=== PATIENT | female | born 2000 | race Caucasian/White ===

== ENCOUNTER 2020-03-11 18:23 | Emergency (ER) | payer OTHER ==
[2020-03-11 18:46] LABS: BILIRUBIN,URINE NEGATIVE (NEGATIVE); GLUCOSE, URINE (UA) NEGATIVE (NEGATIVE); KETONES,URINE (UA) 15 mg/dL (NEGATIVE); LEUKOCYTE ESTERASE, URINE SMALL (NEGATIVE); NITRITE,URINE NEGATIVE (NEGATIVE); OCCULT BLOOD,URINE LARGE (NEGATIVE); PROTEIN,URINE 100 mg/dL (NEGATIVE); UROBILINOGEN,URINE 0.2 (NORMAL) E.U./dL (NORMAL)
[2020-03-11 18:47] LABS: CLARITY,URINE HAZY (CLEAR)
[2020-03-11 18:48] LABS: HCG UR QUAL NEGATIVE
[2020-03-11] MEDS ORDERED: NITROFURANTOIN MACRO 100 MG CAPSULE PO STA (19:06)
[2020-03-11] MEDS ORDERED: PHENAZOPYRIDINE 100 MG TABLET PO STA (19:06)
[2020-03-11 19:07] LABS: BACTERIA,URINE Few /HPF (None Seen); SQUAMOUS EPITHELIAL CELL,UR FEW Squamous (<= Few)
--- NOTE | 2020-03-11 19:08 | ED Physician Documentation ---
PD HPI FEMALE - Stated complaint Stated Complaint: FEMALE - Chief complaint Chief Complaint: UTI - History obtained from History obtained from: Patient - History of Present Illness Timing - onset: How many days ago (6) Timing - duration: Days (6) Timing - details: Gradual onset Pain level max: 4 Pain level max: 3 Associated symptoms: Dysuria, Urinary frequency. No: Fever, Pelvic pain, Vaginal pain, Vaginal bleeding, Vaginal discharge, Genital sore/lesion, Hematuria Contributing factors: No: Exposed to STD Recently seen: Not recently seen Review of Systems Constitutional: denies: Fever Respiratory: denies: Cough GI: denies: Vomiting, Diarrhea : denies: Now EGA Skin: denies: Rash PD PAST MEDICAL HISTORY - Past Medical History Past Medical History: No Cardiovascular: None Respiratory: None Neuro: None Endocrine/Autoimmune: None GI: None NEONATAL DOCTOR: None : None HEENT: None Psych: None Musculoskeletal: None Derm: None - Past Surgical History Past Surgical History: No - Present Medications Home Medications: Ambulatory Orders Medication Instructions Recorded Confirmed Nitrofurantoin Monohyd/M-Cryst 100 mg PO BID #10 capsule 03/11/20 [Macrobid 100 mg Capsule] Phenazopyridine HCl [Pyridium] 200 mg PO TID PRN #6 tablet 03/11/20 - Allergies Allergies/Adverse Reactions: Allergies Allergy/AdvReac Type Severity Reaction Status Date / Time No Known Drug Allergies Allergy Verified 03/11/20 18:33 - Social History Does the pt smoke?: No Smoking Status: Never smoker Does the pt drink ETOH?: No Does the pt have substance abuse?: No - Immunizations Immunizations are current?: Yes - POLST Patient has POLST: No PD ED PE NORMAL - Vitals Vital signs reviewed: Yes - General General: Alert and oriented X 3, No acute distress - HEENT HEENT: Moist mucous membranes - Neck Neck: Supple, no meningeal sign - Cardiac Cardiac: RRR - Respiratory Respiratory: No respiratory distress, Clear bilaterally - Abdomen Abdomen: Soft, Non tender, Non distended - Back Back: No CVA TTP - Derm Derm: Warm and dry - Neuro Neuro: Alert and oriented X 3 - Psych Psych: Normal mood, Normal affect Results - Vitals Vitals: Vital Signs - 24 hr 03/11/20 03/11/20 18:33 19:18 Temperature 36.5 C 36.5 C Heart Rate 100 89 Respiratory 19 18 Rate Blood Pressure 141/90 H 132/80 H O2 Saturation 100 100 Oxygen O2 Source Room air - Labs Labs: Laboratory Tests 03/11/20 18:35 Urine Color YELLOW Urine Clarity HAZY Urine pH 7.0 Ur Specific [place] 1.020 Urine Protein 100 H Urine Glucose (UA) NEGATIVE Urine Ketones 15 H Urine Occult Blood LARGE H Urine Nitrite NEGATIVE Urine Bilirubin NEGATIVE Urine Urobilinogen 0.2 (NORMAL) Ur Leukocyte Esterase SMALL H Urine RBC 11-25 H Urine WBC 6-10 H Ur Squamous Epith Cells FEW Squamous Urine Bacteria Few Ur Microscopic Review INDICATED Urine Culture Comments INDICATED Urine HCG, Qual NEGATIVE PD MEDICAL DECISION MAKING - ED course Complexity details: reviewed results, considered differential, d/w patient ED course: Patient with a UTI. No changes in sexual partners. No STD exposure. No vaginal bleeding or discharge. We will place her on antibiotics and have her follow-up with her doctor as needed. Patient counseled regarding signs and symptoms for which I believe and urgent re-evaluation would be necessary. Patient with good understanding of and agreement to plan and is comfortable going home at this time This document was made in part using voice recognition software. While efforts are made to proofread this document, sound alike and grammatical errors may occur. Departure - Departure Disposition: Home, Self Care Clinical Impression: Urinary tract infection Qualifiers: Urinary tract infection type: acute cystitis Hematuria presence: without hematuria Qualified Code(s): N30.00 - Acute cystitis without hematuria Condition: Good Instructions: ED UTI Cystitis Female Follow-Up: your,doctor as needed [Other] Prescriptions: Nitrofurantoin Monohyd/M-Cryst [Macrobid 100 mg Capsule] 100 mg PO BID #10 capsule Phenazopyridine HCl [Pyridium] 200 mg PO TID PRN #6 tablet PRN Reason: dysuria Comments: Take all antibiotics until gone. Return if you worsen. Follow-up with your doctor as needed for further care. Discharge Date/Time: 03/11/20 19:18
[2020-03-11 19:19] VITALS: BP 132/80
== END 2020-03-11 19:18 | disposition home or self-care (01) ==
LOC: ED 18:23
DX: N30.00 Acute cystitis without hematuria (principal)
CPT/HCPCS: 81001; 81025; 87077; 87086; 87181; 99283; 99284; A9270; 81003

== ENCOUNTER 2020-03-28 16:35 | Outpatient (CLI) | payer OTHER | END 2020-03-28 16:36 | disposition home or self-care (01) | LOC: COV 16:35 | PROVIDERS: ATTEND Family Medicine | DX: U07.1 COVID-19 (principal) ==

== ENCOUNTER 2020-08-16 22:57 | Emergency (ER) | payer OTHER ==
--- NOTE | 2020-08-17 00:31 | ED Physician Documentation ---
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 She states that she has almost saturated a pad. She denies any specific cramping pain. She has an appointment to see her provider on August 29 for ultrasound. Review of Systems Constitutional: denies: Fever Eyes: denies: Decreased vision Ears: denies: Ear pain Nose: denies: Congestion Throat: denies: Sore throat Respiratory: denies: Cough GI: denies: Abdominal Pain, Vomiting : reports: Vaginal bleeding. denies: Dysuria, Frequency Skin: denies: Rash Musculoskeletal: denies: Neck pain, Back pain, Extremity pain PD PAST MEDICAL HISTORY - Past Medical History Past Medical History: No Cardiovascular: None Respiratory: None Neuro: None Endocrine/Autoimmune: None GI: None SALES DEVELOPMENT COORDINATOR: None : None HEENT: None Psych: None Musculoskeletal: None Derm: None - Past Surgical History Past Surgical History: No - Present Medications Home Medications: Ambulatory Orders Medication Instructions Recorded Confirmed No Known Home Medications 08/17/20 08/17/20 - Allergies Allergies/Adverse Reactions: Allergies Allergy/AdvReac Type Severity Reaction Status Date / Time No Known Drug Allergies Allergy Verified 08/16/20 23:03 - Social History Does the pt smoke?: No Smoking Status: Never smoker Does the pt drink ETOH?: No Does the pt have substance abuse?: No - Immunizations Immunizations are current?: Yes - POLST Patient has POLST: No PD ED PE NORMAL - Vitals Vital signs reviewed: Yes (tachy and hypertensive ) - General General: Alert and oriented X 3, No acute distress, Well developed/nourished - HEENT HEENT: Atraumatic, PERRL, EOMI - Cardiac Cardiac: RRR, No murmur - Respiratory Respiratory: No respiratory distress, Clear bilaterally - Abdomen Abdomen: Normal bowel sounds, Soft, Non tender, Non distended, No organomegaly - Back Back: No CVA TTP, No spinal TTP - Derm Derm: Normal color, Warm and dry, No rash - Extremities Extremities: No deformity, No edema - Neuro Neuro: Alert and oriented X 3, java scala developer 2-12 intact, No motor deficit, No sensory deficit, Normal speech Eye Opening: Spontaneous Motor: Obeys Commands Verbal: Oriented GCS Score: 15 - Psych Psych: Normal mood, Normal affect Results - Vitals Vitals: Vital Signs - 24 hr 08/16/20 08/16/20 08/17/20 23:03 23:27 00:51 Temperature 36.9 C Heart Rate 114 H 93 81 Respiratory 16 18 16 Rate Blood Pressure 147/100 H 120/81 H 113/71 O2 Saturation 100 100 100 08/17/20 02:20 Temperature Heart Rate 90 Respiratory 16 Rate Blood Pressure 133/95 H O2 Saturation 100 Oxygen O2 Source Room air - Labs Labs: Laboratory Tests 08/16/20 08/17/20 23:34 01:00 HCG, Quant [id number] Urine Color YELLOW Urine Clarity CLEAR Urine pH 6.5 Ur Specific [place] 1.010 Urine Protein NEGATIVE Urine Glucose (UA) NEGATIVE Urine Ketones NEGATIVE Urine Occult Blood LARGE H Urine Nitrite NEGATIVE Urine Bilirubin NEGATIVE Urine Urobilinogen 0.2 (NORMAL) Ur Leukocyte Esterase NEGATIVE Urine RBC 11-25 H Urine WBC 0-3 Ur Squamous Epith Cells RARE Squamous Urine Bacteria Few Ur Microscopic Review INDICATED Urine Culture Comments NOT INDICATED Procedures - Bedside sono Bedside sono by EMP: With use bedside ultrasound the pelvis is imaged there appears to be a gestational sac present in the uterus with a gestational age of approximately 7 weeks 4 days. I am not able to make out the appearance of parts. PD MEDICAL DECISION MAKING - ED course Complexity details: considered differential, d/w patient, d/w family ED course: 20-year-old female with postcoital bleeding in the first trimester has what appears to be a viable fetus in the uterus. She is reassured given a statistic of 98% chance of carrying the to term. She is given instructions for threatened miscarriage and instructed to follow-up with her OB care as planned. She is placed on pelvic rest until cleared by her OB. Departure - Departure Disposition: 01 Home, Self Care Clinical Impression: Threatened affecting intrauterine Condition: Stable Instructions: ED Miscarriage Poss Follow-Up: Your, doctor [Other] Discharge Date/Time: 08/17/20 02:29
[2020-08-17 00:57] LABS: BILIRUBIN,URINE NEGATIVE (NEGATIVE); GLUCOSE, URINE (UA) NEGATIVE (NEGATIVE); KETONES,URINE (UA) NEGATIVE (NEGATIVE); LEUKOCYTE ESTERASE, URINE NEGATIVE (NEGATIVE); NITRITE,URINE NEGATIVE (NEGATIVE); OCCULT BLOOD,URINE LARGE (NEGATIVE); PH,URINE 6.5 PH (5.0-7.5); PROTEIN,URINE NEGATIVE (NEGATIVE); UROBILINOGEN,URINE 0.2 (NORMAL) E.U./dL (NORMAL)
[2020-08-17 01:02] LABS: CLARITY,URINE CLEAR (CLEAR)
[2020-08-17 01:10] LABS: BACTERIA,URINE Few /HPF (None Seen); SQUAMOUS EPITHELIAL CELL,UR RARE Squamous (<= Few); WBC,URINE 0-3 /HPF (0-5)
[2020-08-17 02:20] VITALS: BP 133/95
--- NOTE | 2020-08-17 11:23 | Ultrasound Report ---
PROCEDURE: OB First Trimester INDICATIONS: 8wks bleeding OUTSIDE/PRIOR DATING DATA: Last menstrual period (LMP): 1621. LMP-based estimated date of delivery (BRANDYN): 03/20/2021. First dating scan (date and location): 08/17/2020. Estimated date of delivery (BRANDYN) from first dating scan: 03/27/2021. TECHNIQUE: Real-time scanning was performed of the fetus and maternal pelvic organs, with image documentation. COMPARISON: None FINDINGS: Embryo: Single live intrauterine is identified with crown-rump length measuring 1.8 cm cor responding to 8 weeks 2 days. There is a small perigestational sac hemorrhage measuring approximately 1.5 x 0.2 x 0.4 cm. There is a nonspecific focus of heterogeneous echogenicity near the lower uterin e segment appearing to be separate from the gestational sac measuring approximately 1.1 x 1.1 x 1.4 c m. Measurement variability in dating: +/- 4 weeks by LMP, +/- 7 days by mean sac diameter (use before 6 weeks gestation if crown-rump length not able to be measured), +/- 5 days by crown-rump length (6-12 weeks gestation). Maternal organs: Ovaries demonstrate a left corpus luteal cyst. IMPRESSION: 1. Single live intrauterine with gestational age of 8 weeks 2 days. 2. Small subchorionic hematoma. 2. Focus of heterogeneous echogenicity near the lower uterine segment appearing to be separate from t he gestational sac. This could represent hematoma. Short interval imaging follow-up of this region is recommended. Reviewed by: Shirley Cummings MD on 08/17/2020 11:21 AM PDT Approved by: Shirley Cummings MD on 08/17/2020 11:21 AM PDT Station ID: [id number]
--- NOTE | 2020-08-17 11:23 | Ultrasound Report ---
PROCEDURE: OB Transvaginal INDICATIONS: 8wks bleeding OUTSIDE/PRIOR DATING DATA: Last menstrual period (LMP): 1621. LMP-based estimated date of delivery (BRANDYN): 03/20/2021. First dating scan (date and location): 08/17/2020. Estimated date of delivery (BRANDYN) from first dating scan: 03/27/2021. TECHNIQUE: Real-time scanning was performed of the fetus and maternal pelvic organs, with image documentation. COMPARISON: None FINDINGS: Embryo: Single live intrauterine is identified with crown-rump length measuring 1.8 cm cor responding to 8 weeks 2 days. There is a small perigestational sac hemorrhage measuring approximately 1.5 x 0.2 x 0.4 cm. There is a nonspecific focus of heterogeneous echogenicity near the lower uterin e segment appearing to be separate from the gestational sac measuring approximately 1.1 x 1.1 x 1.4 c m. Measurement variability in dating: +/- 4 weeks by LMP, +/- 7 days by mean sac diameter (use before 6 weeks gestation if crown-rump length not able to be measured), +/- 5 days by crown-rump length (6-12 weeks gestation). Maternal organs: Ovaries demonstrate a left corpus luteal cyst. IMPRESSION: 1. Single live intrauterine with gestational age of 8 weeks 2 days. 2. Small subchorionic hematoma. 2. Focus of heterogeneous echogenicity near the lower uterine segment appearing to be separate from t he gestational sac. This could represent hematoma. Short interval imaging follow-up of this region is recommended. Reviewed by: Shirley Cummings MD on 08/17/2020 11:22 AM PDT Approved by: Shirley Cummings MD on 08/17/2020 11:22 AM PDT Station ID: [id number]
== END 2020-08-17 02:29 | disposition home or self-care (01) ==
LOC: ED 22:57
DX: O20.0 Threatened abortion (principal); Z3A.08 8 weeks gestation of pregnancy
CPT/HCPCS: 36415; 81001; 81003; 84702; 87086; 99284

== ENCOUNTER 2020-08-29 07:00 | Outpatient (CLI) | payer OTHER | END 2020-08-29 23:59 | disposition home or self-care (01) | LOC: COV 07:00 | PROVIDERS: ATTEND Family Medicine | DX: Z20.822 Contact with and (suspected) exposure to COVID-19 (principal) ==

== ENCOUNTER 2021-03-21 09:59 | Emergency (ER) | payer OTHER ==
--- NOTE | 2021-03-21 10:27 | ED Physician Documentation ---
PD HPI CHEST PAIN - Stated complaint Stated Complaint: CHEST PX - Chief complaint Chief Complaint: Cardiac - History obtained from History obtained from: Patient, Family - History of Present Illness Timing - onset: Today Timing - onset during: Rest Timing - duration: Hours Timing - details: Gradual onset, Still present Quality: Pressure Location: Left chest Radiation: No: Jaw, Neck, Back, Abdominal, Left upper extremity, Right upper extremity Improved by: Rest Associated symptoms: Feeling faint / dizzy. No: Shortness of air, Diaphoresis, Nausea, Vomiting, General Weakness, Palpitations, Cough Similar symptoms before: Has not had sx before Recently seen: Other (delivery) - Additional information Additional information: 20-year-old female has recently delivered her baby 8 days ago early because of preeclampsia. She was induced she has been on blood pressure medication for hypertension and despite that she has developed some pressure in her chest this morning. She states that her leg swelling has completely resolved. She is not short of breath. Review of Systems Constitutional: denies: Fever, Chills Eyes: denies: Decreased vision Ears: denies: Ear pain Nose: denies: Congestion Throat: denies: Sore throat Cardiac: reports: Chest pain / pressure. denies: Palpitations, Pedal edema, Calf pain Respiratory: denies: Dyspnea, Cough GI: denies: Vomiting PD PAST MEDICAL HISTORY - Past Medical History Cardiovascular: None Respiratory: None Neuro: None Endocrine/Autoimmune: None GI: None SHIFT LEADER: None : None HEENT: None Psych: None Musculoskeletal: None Derm: None - Past Surgical History Past Surgical History: No - Present Medications Home Medications: Ambulatory Orders Medication Instructions Recorded Confirmed NIFEdipine [Procardia] 20 mg PO TID 03/21/21 03/21/21 - Allergies Allergies/Adverse Reactions: Allergies Allergy/AdvReac Type Severity Reaction Status Date / Time No Known Drug Allergies Allergy Verified 03/21/21 10:02 - Social History Does the pt smoke?: No Smoking Status: Never smoker Does the pt drink ETOH?: No Does the pt have substance abuse?: No - Immunizations Immunizations are current?: Yes - POLST Patient has POLST: No PD ED PE NORMAL - Vitals Vital signs reviewed: Yes - General General: No acute distress, Well developed/nourished - HEENT HEENT: Atraumatic, PERRL, EOMI - Neck Neck: Supple, no meningeal sign, No bony TTP - Cardiac Cardiac: No murmur, Other (tachy to 110) - Respiratory Respiratory: No respiratory distress, Clear bilaterally - Abdomen Abdomen: Normal bowel sounds, Soft, Non tender, Non distended, No organomegaly - Back Back: No CVA TTP, No spinal TTP - Derm Derm: Normal color, Warm and dry, No rash - Extremities Extremities: No deformity, No edema - Neuro Neuro: Alert and oriented X 3, wind turbine controls engineer 2-12 intact, No motor deficit, No sensory deficit, Normal speech Eye Opening: Spontaneous Motor: Obeys Commands Verbal: Oriented GCS Score: 15 - Psych Psych: Normal mood, Normal affect Results - Vitals Vitals: Vital Signs - 24 hr 03/21/21 03/21/21 03/21/21 10:03 10:31 10:40 Temperature 36.4 C L Heart Rate 117 H 103 H 97 Respiratory 18 17 18 Rate Blood Pressure 146/94 H 141/99 H 141/99 H O2 Saturation 100 100 99 03/21/21 03/21/21 03/21/21 11:28 12:03 13:03 Temperature Heart Rate 85 84 75 Respiratory 17 19 Rate Blood Pressure 143/102 H 132/87 H 131/90 H O2 Saturation 100 99 98 Oxygen O2 Source Room air - EKG (time done) 1012 Rate: Rate (enter#) (97) Ischemia: Normal ST segments Compare to prior EKG: Old EKG unavailable Computer interpretation: Agree with computer - Labs Labs: Laboratory Tests 03/21/21 03/21/21 03/21/21 10:28 10:28 10:28 WBC 6.1 RBC 4.71 Hgb 12.6 Hct 39.2 MCV 83.2 MCH 26.8 L MCHC 32.1 RDW 15.4 H Plt Count 402 MPV 9.8 Neut # (Auto) 4.5 Lymph # (Auto) 1.0 L Mitchell # (Auto) 0.4 Eos # (Auto) 0.1 Baso # (Auto) 0.1 Absolute Nucleated RBC 0.00 Nucleated RBC % 0.0 Sodium 137 Potassium 3.9 Chloride 104 Carbon Dioxide 20 L Anion Gap 13.0 BUN 13 Creatinine 0.5 Estimated GFR (MDRD) 157 Glucose 107 H Calcium 9.4 Total Bilirubin 0.8 AST 25 ALT 23 Alkaline Phosphatase 123 H Troponin I High Sens 7.2 Total Protein 7.8 Albumin 3.6 Globulin 4.2 Albumin/Globulin Ratio 0.9 L Lipase 25 - Rads (name of study) chest Radiology: Prelim report reviewed (Impression: 1. No acute cardiopulmonary abnormality.), EMP read indepedently, See rad report Procedures - Bedside sono Bedside sono by EMP: with the use of bedside ultrasound the heart was imaged and is without evidence of pericaridal effusion. - IVC sono (time) 1037 Bedside IVC sono: IVC measures (cm) (0.91), IVC collapsed c insp (cm) (complete), Dehydration (est 1-2 liter deficit) PD MEDICAL DECISION MAKING - ED course Complexity details: reviewed old records, reviewed results, re-evaluated patient, considered differential, d/w patient ED course: 20 y/o female with hypertension has recently delivered a baby and returns here one week later with chest pain and elevated blood pressure. The patient was induced because of hypertension and pre-eclampsia. She is on some nifedapine and she is found to be dehydrated on interrogation of the IVC and she is administered IV saline with improvement in her pressure and symptoms. I considered hypertensive emergency but did not have the pressure to support this diagnosis. I considered post cardiomyopathy but the patient had no evidence of failure and did not have pericardial effusion. After hydration she was discharged to continue to care for her baby. Departure - Departure Disposition: 01 Home, Self Care Clinical Impression: Dehydration Condition: Stable Instructions: ED Dehydration Follow-Up: Eber Lechuga MD [Primary Care Provider] - Discharge Date/Time: 03/21/21 13:21
[2021-03-21 10:39] LABS: BASOPHILS # (AUTO) 0.1 10^3/uL (0.0-0.1); BASOPHILS % (AUTO) 0.8 %; EOSINOPHILS # (AUTO) 0.1 10^3/uL (0.0-0.7); HCT - HEMATOCRIT 39.2 % (37.0-47.0); HGB - HEMOGLOBIN 12.6 g/dL (12.0-16.0); LYMPHOCYTES % (AUTO) 16.7 %; MEAN CORPUSCULAR HEMOGLOBIN 26.8 pg (27.0-31.0); MEAN CORPUSCULAR HGB CONC 32.1 g/dL (32.0-36.0); MEAN CORPUSCULAR VOLUME 83.2 fL (81.0-99.0); MEAN PLATELET VOLUME 9.8 fL (7.9-10.8); MONOCYTES # (AUTO) 0.4 10^3/uL (0.0-1.0); MONOCYTES % (AUTO) 6.9 %; NEUTROPHILS # (AUTO) 4.5 10^3/uL (1.5-6.6); NEUTROPHILS % (AUTO) 74.4 %; PLT - PLATELET COUNT 402 10^3/uL (130-450); RED BLOOD COUNT 4.71 10^6/uL (4.20-5.40); RED CELL DISTRIBUTION WIDTH 15.4 % (12.0-15.0); WHITE BLOOD COUNT 6.1 x10^3/uL (4.8-10.8)
[2021-03-21] MEDS ORDERED: SODIUM CHLORIDE 0.9% 1,000 ML IV STA (10:39)
--- NOTE | 2021-03-21 10:48 | XRAY Report ---
PROCEDURE: Chest 1 View X-Ray INDICATIONS: Chest Pain TECHNIQUE: One view of the chest was acquired. COMPARISON: None. FINDINGS: SUPPORT DEVICES: None. LUNGS/PLEURA: No focal consolidation, pleural effusion or space-occupying pneumothorax. MEDIASTINUM: The cardiomediastinal silhouette is within normal limits. BONES/SOFT TISSUES: No acute abnormality. IMPRESSION: 1.No acute cardiopulmonary abnormality. Reviewed by: Garett Brambila MD on 03/21/2021 10:46 AM [facility] Approved by: Garett Brambila MD on 03/21/2021 10:46 AM [facility] Station ID: [id number]
[2021-03-21 10:58] LABS: ALBUMIN 3.6 g/dL (3.2-5.5); ALBUMIN/GLOBULIN RATIO 0.9 (1.0-2.2); BILIRUBIN,TOTAL 0.8 mg/dL (0.2-1.0); CALCIUM 9.4 mg/dL (8.5-10.3); CREATININE 0.5 mg/dL (0.4-1.0); POTASSIUM 3.9 mmol/L (3.5-5.0); TOTAL PROTEIN 7.8 g/dL (6.7-8.2)
[2021-03-21 13:04] VITALS: BP 131/90
== END 2021-03-21 13:21 | disposition home or self-care (01) ==
LOC: ED 09:59
DX: O99.285 Endocrine, nutritional and metabolic diseases complicating the puerperium (principal); E86.0 Dehydration; I10 Essential (primary) hypertension
CPT/HCPCS: 36415; 80053; 83690; 84484; 85025; 93005; 96360; 99284

== ENCOUNTER 2021-04-26 18:45 | Emergency (ER) | payer OTHER ==
[2021-04-26] MEDS ORDERED: IBUPROFEN 600 MG TABLET PO STA ×2 (19:26→21:17)
--- NOTE | 2021-04-26 19:26 | ED Physician Documentation ---
PD HPI FEMALE - Stated complaint Stated Complaint: HEADACHES,NAUSEA - Chief complaint Chief Complaint: Abd Pain - History obtained from History obtained from: Patient - Additional information Additional information: 20-year-old G1, P1 6 weeks . Unvaccinated against COVID. Body aches and chills for 2 days with headache and nausea since yesterday. Headache is gradual onset and moderate in severity. It is associated with some pelvic pain. She is half breast half bottle feeding. No sick contacts. 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 : None HEENT: None Psych: None Musculoskeletal: None Derm: None Other Past Medical History: preeclampsia during - Past Surgical History Past Surgical History: No - Present Medications Home Medications: Ambulatory Orders Medication Instructions Recorded Confirmed Escitalopram Oxalate 5 mg PO DAILY 04/26/21 04/26/21 Promethazine [Phenergan] 25 mg PO Q6H PRN #20 tab 04/26/21 - Allergies Allergies/Adverse Reactions: Allergies Allergy/AdvReac Type Severity Reaction Status Date / Time No Known Drug Allergies Allergy Verified 04/26/21 18:51 - Social History Does the pt smoke?: No Smoking Status: Never smoker Does the pt drink ETOH?: No Does the pt have substance abuse?: No - Immunizations Immunizations are current?: Yes - POLST Patient has POLST: No PD ED PE NORMAL - Vitals Vital signs reviewed: Yes - General General: Alert and oriented X 3, No acute distress - HEENT HEENT: PERRL, EOMI, Pharynx benign - Neck Neck: Supple, no meningeal sign, No bony TTP - Cardiac Cardiac: RRR, No murmur - Respiratory Respiratory: No respiratory distress, Clear bilaterally - Abdomen Abdomen: Normal bowel sounds, Soft, Non tender - Back Back: No CVA TTP, No spinal TTP - Derm Derm: Normal color, Warm and dry - Extremities Extremities: No edema, No calf tenderness / cord - Neuro Neuro: Alert and oriented X 3, Normal speech Results - Vitals Vitals: Vital Signs - 24 hr 01/04/26/21 04/26/21 18:48 19:41 19:48 Temperature 36.3 C L Heart Rate 97 93 83 Respiratory 16 Rate Blood Pressure 144/97 H 130/107 H 136/86 H O2 Saturation 100 98 100 04/26/21 04/26/21 20:19 21:25 Temperature 36.3 C L Heart Rate 79 79 Respiratory 16 Rate Blood Pressure 132/86 H 132/86 H O2 Saturation 100 100 Oxygen O2 Source Room air - Labs Labs: Laboratory Tests 04/26/21 04/26/21 04/26/21 19:09 19:09 19:09 WBC RBC Hgb Hct MCV MCH MCHC RDW Plt Count MPV Neut # (Auto) Lymph # (Auto) [place] # (Auto) Eos # (Auto) Baso # (Auto) Absolute Nucleated RBC Nucleated RBC % Sodium Potassium Chloride Carbon Dioxide Anion Gap BUN Creatinine Estimated GFR (MDRD) Glucose Calcium Magnesium Urine Color YELLOW Urine Clarity CLEAR Urine pH 6.0 Ur Specific [place] 1.025 Urine Protein NEGATIVE Urine Glucose (UA) NEGATIVE Urine Ketones 15 H Urine Occult Blood NEGATIVE Urine Nitrite NEGATIVE Urine Bilirubin NEGATIVE Urine Urobilinogen 0.2 (NORMAL) Ur Leukocyte Esterase TRACE H Urine RBC 3 Urine WBC 4-5 Ur Squamous Epith Cells MOD Squamous H Urine Bacteria Rare Ur Microscopic Review INDICATED Urine Culture Comments NOT INDICATED U Random Total Protein 8 Urine Creatinine 131.7 Urine HCG, Qual NEGATIVE Nasal Adenovirus (PCR) Nasal B. parapertussis DNA (PCR) Nasal Coronavir 229E PCR Nasal Coronavir HKU1 PCR Nasal Coronavir NL63 PCR Nasal Coronavir OC43 PCR Nasal Enterovir/Rhinovir PCR Nasal Influenza B PCR Nasal Influenza A PCR Nasal Parainfluen 1 PCR Nasal Parainfluen 2 PCR Nasal Parainfluen 3 PCR Nasal Parainfluen 4 PCR Nasal RSV (PCR) Nasal B.pertussis DNA PCR Nasal C.pneumoniae (PCR) [place] Human Metapneumo PCR Nasal M.pneumoniae (PCR) Nasal SARS-CoV-2 (PCR) 04/26/21 04/26/21 04/26/21 19:31 19:31 19:33 WBC 5.7 RBC 5.05 Hgb 13.4 Hct 41.1 MCV 81.4 MCH 26.5 L MCHC 32.6 RDW 14.7 Plt Count 259 MPV 9.5 Neut # (Auto) 3.8 Lymph # (Auto) 1.4 L [place] # (Auto) 0.5 Eos # (Auto) 0.0 Baso # (Auto) 0.0 Absolute Nucleated RBC 0.00 Nucleated RBC % 0.0 Sodium 138 Potassium 3.4 L Chloride 103 Carbon Dioxide 25 Anion Gap 10.0 BUN 8 Creatinine 0.6 Estimated GFR (MDRD) 127 Glucose 96 Calcium 9.8 Magnesium 2.0 Urine Color Urine Clarity Urine pH Ur Specific [place] Urine Protein Urine Glucose (UA) Urine Ketones Urine Occult Blood Urine Nitrite Urine Bilirubin Urine Urobilinogen Ur Leukocyte Esterase Urine RBC Urine WBC Ur Squamous Epith Cells Urine Bacteria Ur Microscopic Review Urine Culture Comments U Random Total Protein Urine Creatinine Urine HCG, Qual Nasal Adenovirus (PCR) NOT DETECTED Nasal B. parapertussis DNA (PCR) NOT DETECTED Nasal Coronavir 229E PCR NOT DETECTED Nasal Coronavir HKU1 PCR NOT DETECTED Nasal Coronavir NL63 PCR NOT DETECTED Nasal Coronavir OC43 PCR NOT DETECTED Nasal Enterovir/Rhinovir PCR NOT DETECTED Nasal Influenza B PCR NOT DETECTED Nasal Influenza A PCR NOT DETECTED Nasal Parainfluen 1 PCR NOT DETECTED Nasal Parainfluen 2 PCR NOT DETECTED Nasal Parainfluen 3 PCR NOT DETECTED Nasal Parainfluen 4 PCR NOT DETECTED Nasal RSV (PCR) NOT DETECTED Nasal B.pertussis DNA PCR NOT DETECTED Nasal C.pneumoniae (PCR) NOT DETECTED [place] Human Metapneumo PCR NOT DETECTED Nasal M.pneumoniae (PCR) NOT DETECTED Nasal SARS-CoV-2 (PCR) NOT DETECTED PD MEDICAL DECISION MAKING - ED course ED course: 20-year-old woman who is 6 weeks presents with body aches, nausea, headache, and mildly elevated blood pressures. No urine protein of significance. Covid negative. Case discussed by phone with on-call OB, Juan José Mera who agrees with plan to restart nifedipine and symptomatic treatment pending follow- up. She has the nifedipine at home. - Consults Consults: Consulted (name) (Juan José Mera) Departure - Departure Disposition: 01 Home, Self Care Clinical Impression: Nausea, Elevated blood pressure reading without diagnosis of hypertension Condition: Good Record reviewed to determine appropriate education?: Yes Instructions: ED HTN Established Prescriptions: Promethazine [Phenergan] 25 mg PO Q6H PRN #20 tab PRN Reason: Nausea / Vomiting Comments: I sent your prescription to [facility] in [place]. Follow-up with your family doctor in about a week, discuss your blood pressure and return for new or worsening symptoms. Restart her nifedipine at the previous dose. Discharge Date/Time: 04/26/21 21:38
[2021-04-26 19:36] LABS: BASOPHILS % (AUTO) 0.7 %; EOSINOPHILS % (AUTO) 0.4 %; HCT - HEMATOCRIT 41.1 % (37.0-47.0); HGB - HEMOGLOBIN 13.4 g/dL (12.0-16.0); LYMPHOCYTES # (AUTO) 1.4 10^3/uL (1.5-3.5); LYMPHOCYTES % (AUTO) 24.6 %; MEAN CORPUSCULAR HEMOGLOBIN 26.5 pg (27.0-31.0); MEAN CORPUSCULAR HGB CONC 32.6 g/dL (32.0-36.0); MEAN CORPUSCULAR VOLUME 81.4 fL (81.0-99.0); MEAN PLATELET VOLUME 9.5 fL (7.9-10.8); MONOCYTES # (AUTO) 0.5 10^3/uL (0.0-1.0); MONOCYTES % (AUTO) 8.3 %; NEUTROPHILS # (AUTO) 3.8 10^3/uL (1.5-6.6); NEUTROPHILS % (AUTO) 65.8 %; PLT - PLATELET COUNT 259 10^3/uL (130-450); RED BLOOD COUNT 5.05 10^6/uL (4.20-5.40); RED CELL DISTRIBUTION WIDTH 14.7 % (12.0-15.0); WHITE BLOOD COUNT 5.7 x10^3/uL (4.8-10.8)
[2021-04-26 19:45] LABS: BILIRUBIN,URINE NEGATIVE (NEGATIVE); GLUCOSE, URINE (UA) NEGATIVE (NEGATIVE); KETONES,URINE (UA) 15 mg/dL (NEGATIVE); LEUKOCYTE ESTERASE, URINE TRACE (NEGATIVE); NITRITE,URINE NEGATIVE (NEGATIVE); OCCULT BLOOD,URINE NEGATIVE (NEGATIVE); PROTEIN,URINE NEGATIVE (NEGATIVE); UROBILINOGEN,URINE 0.2 (NORMAL) E.U./dL (NORMAL)
[2021-04-26 19:45] LABS: CALCIUM 9.8 mg/dL (8.5-10.3); CREATININE 0.6 mg/dL (0.4-1.0); POTASSIUM 3.4 mmol/L (3.5-5.0)
[2021-04-26 19:47] LABS: CLARITY,URINE CLEAR (CLEAR); HCG UR QUAL NEGATIVE
[2021-04-26 20:02] LABS: BACTERIA,URINE Rare /HPF (None Seen); RBC,URINE 3 /HPF (0-5); SQUAMOUS EPITHELIAL CELL,UR MOD Squamous (<= Few)
[2021-04-26 20:21] VITALS: BP 132/86
[2021-04-26 20:52] LABS: B. PARAPERTUSSIS- RESP PCR PAN NOT DETECTED; B. PERTUSSIS- RESP PCR PANEL NOT DETECTED; CORONAVIRUS 229E-RESP PCR NOT DETECTED; CORONAVIRUS HKU1-RESP PCR NOT DETECTED; CORONAVIRUS NL63-RESP PCR NOT DETECTED; CORONAVIRUS OC43-RESP PCR NOT DETECTED; HUMAN METAPNEUMOVIRUS NOT DETECTED; INFLUENZA A- RESP PCR PANEL NOT DETECTED; INFLUENZA B - RESP PCR PANEL NOT DETECTED; PARAINFLUENZA VIRUS 1 NOT DETECTED; PARAINFLUENZA VIRUS 2 NOT DETECTED; PARAINFLUENZA VIRUS 3 NOT DETECTED; PARAINFLUENZA VIRUS 4 NOT DETECTED; RHINOVIRUS/ENTEROVIRUS NOT DETECTED; RSV- RESP PCR PANEL NOT DETECTED; SARS-CoV-2 -RESP PCR PANEL NOT DETECTED
[2021-04-26 20:53] LABS: C. PNEUMONIAE- RESP PCR PANEL NOT DETECTED; M. PNEUMONIAE- RESP PCR PANEL NOT DETECTED
[2021-04-26] MEDS ORDERED: PROMETHAZINE 25 MG TABLET PO STA (21:30)
== END 2021-04-26 21:38 | disposition home or self-care (01) ==
LOC: ED 18:45
DX: O90.89 Other complications of the puerperium, not elsewhere classified (principal); M79.10 Myalgia, unspecified site; R51.9 Headache, unspecified; R11.0 Nausea; R03.0 Elevated blood-pressure reading, without diagnosis of hypertension; Z20.822 Contact with and (suspected) exposure to COVID-19
CPT/HCPCS: 0202U; 36415; 80048; 81001; 81025; 82570; 83735; 84156; 85025; 99283; 99284; A9270; Q0169; 81003; 87086

== ENCOUNTER 2021-05-02 21:34 | Emergency (ER) | payer OTHER ==
[2021-05-02 22:08] LABS: BASOPHILS % (AUTO) 0.8 %; EOSINOPHILS # (AUTO) 0.1 10^3/uL (0.0-0.7); HCT - HEMATOCRIT 40.9 % (37.0-47.0); HGB - HEMOGLOBIN 13.3 g/dL (12.0-16.0); LYMPHOCYTES # (AUTO) 2.1 10^3/uL (1.5-3.5); LYMPHOCYTES % (AUTO) 40.5 %; MEAN CORPUSCULAR HEMOGLOBIN 26.5 pg (27.0-31.0); MEAN CORPUSCULAR HGB CONC 32.5 g/dL (32.0-36.0); MEAN CORPUSCULAR VOLUME 81.5 fL (81.0-99.0); MEAN PLATELET VOLUME 10.1 fL (7.9-10.8); MONOCYTES # (AUTO) 0.5 10^3/uL (0.0-1.0); MONOCYTES % (AUTO) 9.2 %; NEUTROPHILS # (AUTO) 2.5 10^3/uL (1.5-6.6); NEUTROPHILS % (AUTO) 48.3 %; PLT - PLATELET COUNT 317 10^3/uL (130-450); RED BLOOD COUNT 5.02 10^6/uL (4.20-5.40); RED CELL DISTRIBUTION WIDTH 14.6 % (12.0-15.0); WHITE BLOOD COUNT 5.2 x10^3/uL (4.8-10.8)
[2021-05-02 22:14] LABS: INR 1.2 (0.8-1.2); PT - PROTHROMBIN TIME 13.3 secs (9.9-12.6)
[2021-05-02 22:23] LABS: ALBUMIN 4.3 g/dL (3.2-5.5); ALBUMIN/GLOBULIN RATIO 1.3 (1.0-2.2); BILIRUBIN,TOTAL 0.5 mg/dL (0.2-1.0); CALCIUM 9.2 mg/dL (8.5-10.3); CREATININE 0.5 mg/dL (0.4-1.0); POTASSIUM 3.2 mmol/L (3.5-5.0); TOTAL PROTEIN 7.7 g/dL (6.7-8.2)
[2021-05-03 00:06] VITALS: BP 136/91
--- NOTE | 2021-05-03 00:07 | ED Physician Documentation ---
PD HPI FEMALE - Stated complaint Stated Complaint: POST BLEEDING - Chief complaint Chief Complaint: Abd Pain - Additional information Additional information: Patient is 20-year-old female, G1, P1 presenting to the emergency department with vaginal bleeding. Reports 8 weeks from vaginal delivery that was complicated by preeclampsia. States this afternoon began having vaginal bleeding with passage of clots. Denies lower pelvic pain, fever, nausea, vomiting, diarrhea, constipation, history of bleeding diathesis. Was seen at this facility in late March for persistent hypertension and was started on nifedipine however patient reports that she has not begun taking this medication as she feels that her elevated blood pressure during that encounter was secondary to anxiety. Review of Systems Unable to obtain: Unresponsive Ten Systems: 10 systems reviewed and negative Constitutional: denies: Fever Eyes: denies: Loss of vision Ears: denies: Loss of hearing Nose: denies: Rhinorrhea / runny nose Throat: denies: Dental pain / toothache Cardiac: denies: Chest pain / pressure Respiratory: denies: Dyspnea GI: denies: Abdominal Pain, Nausea, Vomiting, Constipation, Diarrhea : reports: Vaginal bleeding. 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 : None HEENT: None Psych: None Musculoskeletal: None Derm: None - Past Surgical History Past Surgical History: No - Present Medications Home Medications: Ambulatory Orders Medication Instructions Recorded Confirmed Escitalopram Oxalate 5 mg PO DAILY 04/26/21 04/26/21 Promethazine [Phenergan] 25 mg PO Q6H PRN #20 tab 04/26/21 - Allergies Allergies/Adverse Reactions: Allergies Allergy/AdvReac Type Severity Reaction Status Date / Time No Known Drug Allergies Allergy Verified 04/26/21 18:51 - Social History Does the pt smoke?: No Smoking Status: Never smoker Does the pt drink ETOH?: No Does the pt have substance abuse?: No - Immunizations Immunizations are current?: Yes - POLST Patient has POLST: No PD ED PE NORMAL - Vitals Vital signs reviewed: Yes - General General: Alert and oriented X 3 - HEENT HEENT: Atraumatic - Neck Neck: Supple, no meningeal sign - Cardiac Cardiac: RRR - Respiratory Respiratory: No respiratory distress - Abdomen Abdomen: Normal bowel sounds, Soft - Female Female : Deferred - Rectal Rectal: Deferred - Back Back: No CVA TTP - Derm Derm: Normal color Results - Vitals Vitals: Vital Signs - 24 hr 05/02/21 05/02/21 05/02/21 21:36 21:54 22:44 Temperature 36.1 C L Heart Rate 121 H 107 H 84 Respiratory 18 16 Rate Blood Pressure 147/103 H 142/104 H 133/95 H O2 Saturation 97 100 100 Oxygen O2 Source Room air - Labs Labs: Laboratory Tests 05/02/21 05/02/21 05/02/21 22:03 22:03 22:03 WBC 5.2 RBC 5.02 Hgb 13.3 Hct 40.9 MCV 81.5 MCH 26.5 L MCHC 32.5 RDW 14.6 Plt Count 317 MPV 10.1 Neut # (Auto) 2.5 Lymph # (Auto) 2.1 [place] # (Auto) 0.5 Eos # (Auto) 0.1 Baso # (Auto) 0.0 Absolute Nucleated RBC 0.00 Nucleated RBC % 0.0 PT 13.3 H INR 1.2 Sodium 137 Potassium 3.2 L Chloride 103 Carbon Dioxide 25 Anion Gap 9.0 BUN 8 Creatinine 0.5 Estimated GFR (MDRD) 157 Glucose 81 Calcium 9.2 Total Bilirubin 0.5 AST 22 ALT 21 Alkaline Phosphatase 101 Total Protein 7.7 Albumin 4.3 Globulin 3.4 Albumin/Globulin Ratio 1.3 Lipase 34 HCG, Quant 05/02/21 22:03 WBC RBC Hgb Hct MCV MCH MCHC RDW Plt Count MPV Neut # (Auto) Lymph # (Auto) [place] # (Auto) Eos # (Auto) Baso # (Auto) Absolute Nucleated RBC Nucleated RBC % PT INR Sodium Potassium Chloride Carbon Dioxide Anion Gap BUN Creatinine Estimated GFR (MDRD) Glucose Calcium Total Bilirubin AST ALT Alkaline Phosphatase Total Protein Albumin Globulin Albumin/Globulin Ratio Lipase HCG, Quant 1.35 PD MEDICAL DECISION MAKING - ED course Complexity details: reviewed results ED course: Patient is a 20-year-old female, G1, P1 presenting to the emergency department vaginal bleeding, approximately 8 weeks . Afebrile, hemodynamically stable on arrival to the emergency department. Did have low level tachycardia on arrival however this normalized and she spent the majority of her time in the emergency department with heart rate 70-80. Comprehensive labs obtained demonstrated stable hemoglobin, normal LFTs, normal INR. Ultrasonography negative for any retained products of conception, did demonstrate some mild pelvic free fluid, likely physiologic. Patient observed in the emergency department for several hours, reevaluated multiple occasions and found to be resting comfortably and in no acute distress. Will discharge at this time with instructions to follow-up with [facility]. Discussed return precautions prior to discharge. Departure - Departure Disposition: 01 Home, Self Care Clinical Impression: Vaginal bleeding Comments: Thank you for allowing us to care for you today at [facility]. All the testing performed in the emergency department including your blood work, urine analysis and the ultrasound performed were very reassuring. Nevertheless I do want you to follow-up very carefully with your [facility]. Please call them first thing tomorrow. If it anytime you develop any new or worsening symptoms, particularly if you develop any fever, lower abdominal pain, dizziness, lightheadedness or have any syncopal events please return to the emergency department immediately for further evaluation and treatment.
--- NOTE | 2021-05-03 00:11 | Ultrasound Report ---
PROCEDURE: Pelvic w/Transvaginal INDICATIONS: PP bleed, eval RPPOC TECHNIQUE: Real-time scanning was performed of the pelvic organs, with image documentation. Additional endovagi nal scanning was necessary due to incomplete visualization of the adnexal and endometrial structures by transabdominal scanning. COMPARISON: None. FINDINGS: No pathologic free abdominal or pelvic fluid. Uterus: Uterus is normal in size at 7.9 x 5.6 x 3.8 14.4 cm. The endometrium measures mm in com bined thickness. While there are several small echogenic foci punctate in size within the endometria l, there are no focal areas of masslike prominence or increased vascularity typically seen with retai bell products of conception. Ovaries: Right ovary measures 3.3 x 2.4 x 1.5 cm, volume 6.2 cc. There is a focus of decreased echog enicity within the right ovary measuring 1.3 cm. Left ovary is not visualized. Minimal free fluid is noted within the proximal regions as well as cul-de-sac. IMPRESSION: No definitively identified retained products of conception. Suspected prominent right ovarian follicle. Reviewed by: Shirley Cummings MD on 05/03/2021 12:09 AM PST Approved by: Shirley Cummings MD on 05/03/2021 12:09 AM PST Station ID: [id number]
== END 2021-05-03 00:12 | disposition home or self-care (01) ==
LOC: ED 21:34
DX: O72.2 Delayed and secondary postpartum hemorrhage (principal)
CPT/HCPCS: 36415; 80053; 83690; 84702; 85025; 85610; 99282; 99284

== ENCOUNTER 2021-05-03 14:03 | Emergency (ER) | payer OTHER ==
[2021-05-03] MEDS ORDERED: SODIUM CHLORIDE 0.9% 1,000 ML IV STA (14:17)
--- NOTE | 2021-05-03 14:28 | ED Physician Documentation ---
PD HPI FEMALE - Stated complaint Stated Complaint: FEMALE - Chief complaint Chief Complaint: Abd Pain - History obtained from History obtained from: Patient - History of Present Illness Timing - onset: Enter time (1800), Last night Timing - duration: Days (1) Timing - details: Abrupt onset, Still present, Waxing and waning Associated symptoms: Pelvic pain, Vaginal bleeding Contributing factors: Other (7 wks post ) Similar symptoms before: Has not had sx before Recently seen: Clinic, Emergency Dept - Additional information Additional information: 20-year-old female s/p vaginal delivery 7 weeks ago has developed bleeding yesterday evening beginning about 6 PM. She is saturating a pad per hour or more. She was seen in the emergency department 3 hours later her bleeding had stopped and she was discharged home. She did have blood work including INR which were normal she was not anemic. She had ultrasound without evidence of retained products of conception. She was seen in follow-up today by her BEHAVIORAL TECHNICIAN doctor and at that time the patient was not bleeding. She arrived back home only to find that her bleeding had increased even more than it was previously. She is bleeding down both of her legs. She called her OB and they asked her to come here and they called us to ask us to consult BEHAVIORAL TECHNICIAN for potential D&C . Review of Systems Constitutional: denies: Fever Ears: denies: Ear pain Nose: denies: Congestion Throat: denies: Sore throat Cardiac: denies: Chest pain / pressure Respiratory: denies: Dyspnea, Cough GI: denies: Abdominal Pain, Nausea, Vomiting, Constipation, Diarrhea : reports: Vaginal bleeding, Other (pelivc cramping.). denies: Dysuria, Frequency Skin: denies: Rash Musculoskeletal: denies: Neck pain, Back pain, Extremity pain PD PAST MEDICAL HISTORY - Past Medical History Cardiovascular: None Respiratory: None Neuro: None Endocrine/Autoimmune: None GI: None BEHAVIORAL TECHNICIAN: None : None HEENT: None Psych: None Musculoskeletal: None Derm: None - Past Surgical History Past Surgical History: No - Present Medications Home Medications: Ambulatory Orders Medication Instructions Recorded Confirmed Escitalopram Oxalate 5 mg PO DAILY 04/26/21 04/26/21 Promethazine [Phenergan] 25 mg PO Q6H PRN #20 tab 04/26/21 Norethindrone 0.35 mg PO DAILY PM #30 tablet 05/03/21 - Allergies Allergies/Adverse Reactions: Allergies Allergy/AdvReac Type Severity Reaction Status Date / Time No Known Drug Allergies Allergy Verified 05/03/21 14:14 - Social History Does the pt smoke?: No Smoking Status: Never smoker Does the pt drink ETOH?: No Does the pt have substance abuse?: No - Immunizations Immunizations are current?: Yes - POLST Patient has POLST: No PD ED PE NORMAL - Vitals Vital signs reviewed: Yes (tachy and hypertensive) - General General: Alert and oriented X 3, Well developed/nourished - HEENT HEENT: Atraumatic, PERRL, EOMI - Cardiac Cardiac: No murmur, Other (tachy to 110) - Respiratory Respiratory: No respiratory distress - Abdomen Abdomen: Normal bowel sounds, Soft, Non tender, Non distended, No organomegaly - Back Back: No CVA TTP, No spinal TTP - Derm Derm: Normal color, Warm and dry, No rash - Extremities Extremities: No deformity, No edema - Neuro Neuro: Alert and oriented X 3, linoleum tile layer 2-12 intact, No motor deficit, No sensory deficit, Normal speech Eye Opening: Spontaneous Motor: Obeys Commands Verbal: Oriented GCS Score: 15 - Psych Psych: Normal mood, Normal affect Results - Vitals Vitals: Vital Signs - 24 hr 05/03/21 05/03/21 05/03/21 14:08 14:58 16:23 Temperature 36.3 C L Heart Rate 121 H 76 72 Respiratory 18 18 21 Rate Blood Pressure 139/96 H 147/109 H 133/79 H O2 Saturation 100 98 100 Oxygen O2 Source Room air - Labs Labs: Laboratory Tests 05/03/21 05/03/21 05/03/21 14:26 14:26 14:26 WBC 4.6 L RBC 5.23 Hgb 13.9 Hct 42.6 MCV 81.5 MCH 26.6 L MCHC 32.6 RDW 14.7 Plt Count 326 MPV 10.1 Neut # (Auto) 2.5 Lymph # (Auto) 1.6 [place] # (Auto) 0.4 Eos # (Auto) 0.1 Baso # (Auto) 0.0 Absolute Nucleated RBC 0.00 Nucleated RBC % 0.0 Sodium 137 Potassium 3.3 L Chloride 104 Carbon Dioxide 23 Anion Gap 10.0 BUN 7 Creatinine 0.5 Estimated GFR (MDRD) 157 Glucose 81 Calcium 9.6 Total Bilirubin 0.3 AST 21 ALT 22 Alkaline Phosphatase 109 Total Protein 8.3 H Albumin 4.6 Globulin 3.7 Albumin/Globulin Ratio 1.2 Lipase 33 Urine Color Urine Clarity Urine pH Ur Specific [place] Urine Protein Urine Glucose (UA) Urine Ketones Urine Occult Blood Urine Nitrite Urine Bilirubin Urine Urobilinogen Ur Leukocyte Esterase Urine RBC Urine WBC Ur Squamous Epith Cells Urine Bacteria Ur Microscopic Review Urine Culture Comments Blood Type B POSITIVE Antibody Screen NEGATIVE 05/03/21 14:47 WBC RBC Hgb Hct MCV MCH MCHC RDW Plt Count MPV Neut # (Auto) Lymph # (Auto) [place] # (Auto) Eos # (Auto) Baso # (Auto) Absolute Nucleated RBC Nucleated RBC % Sodium Potassium Chloride Carbon Dioxide Anion Gap BUN Creatinine Estimated GFR (MDRD) Glucose Calcium Total Bilirubin AST ALT Alkaline Phosphatase Total Protein Albumin Globulin Albumin/Globulin Ratio Lipase Urine Color RED/BLOODY Urine Clarity BLOODY Urine pH 7.0 Ur Specific [place] 1.020 Urine Protein 100 H Urine Glucose (UA) NEGATIVE Urine Ketones NEGATIVE Urine Occult Blood LARGE H Urine Nitrite POSITIVE H Urine Bilirubin NEGATIVE Urine Urobilinogen 1 (NORMAL) Ur Leukocyte Esterase TRACE H Urine RBC TNTC H Urine WBC 6-10 H Ur Squamous Epith Cells RARE Squamous Urine Bacteria Rare Ur Microscopic Review INDICATED Urine Culture Comments INDICATED Blood Type Antibody Screen PD MEDICAL DECISION MAKING - ED course Complexity details: reviewed results, re-evaluated patient, considered differential, d/w patient ED course: 20y/o female with post hemorrhage without retained products of conception. The patient is 7 weeks however and this is more likely a first menstrual period that is severe. The patient presented to the emerge department with significant bleeding she had normal blood counts and an IV was begun she was administered saline and tranexamic acid. This improved the patient's bleeding. Dr. Anderson was consulted in the case came to the emergency department evaluated the patient and has recommended conservative treatment with norethindrone. Departure - Departure Disposition: 01 Home, Self Care Clinical Impression: Vaginal bleeding Instructions: ED Bleed Irregular Vaginal Follow-Up: Eber Lechuga MD [Primary Care Provider] - Prescriptions: Norethindrone 0.35 mg PO DAILY PM #30 tablet Comments: Carina, today it looks like the bleeding you have has improved with the use of the tranexamic acid. Dr. Anderson has recommended you take norethindrone to stabilize your endometrium and stop this bleeding. This medication has been E scribed to [facility] in [place]. Discharge Date/Time: 05/03/21 17:43
[2021-05-03 14:34] LABS: BASOPHILS % (AUTO) 0.9 %; EOSINOPHILS # (AUTO) 0.1 10^3/uL (0.0-0.7); EOSINOPHILS % (AUTO) 1.3 %; HCT - HEMATOCRIT 42.6 % (37.0-47.0); HGB - HEMOGLOBIN 13.9 g/dL (12.0-16.0); LYMPHOCYTES # (AUTO) 1.6 10^3/uL (1.5-3.5); LYMPHOCYTES % (AUTO) 35.4 %; MEAN CORPUSCULAR HEMOGLOBIN 26.6 pg (27.0-31.0); MEAN CORPUSCULAR HGB CONC 32.6 g/dL (32.0-36.0); MEAN CORPUSCULAR VOLUME 81.5 fL (81.0-99.0); MEAN PLATELET VOLUME 10.1 fL (7.9-10.8); MONOCYTES # (AUTO) 0.4 10^3/uL (0.0-1.0); MONOCYTES % (AUTO) 8.1 %; NEUTROPHILS # (AUTO) 2.5 10^3/uL (1.5-6.6); NEUTROPHILS % (AUTO) 54.3 %; PLT - PLATELET COUNT 326 10^3/uL (130-450); RED BLOOD COUNT 5.23 10^6/uL (4.20-5.40); RED CELL DISTRIBUTION WIDTH 14.7 % (12.0-15.0); WHITE BLOOD COUNT 4.6 x10^3/uL (4.8-10.8)
[2021-05-03 14:47] LABS: ALBUMIN 4.6 g/dL (3.2-5.5); ALBUMIN/GLOBULIN RATIO 1.2 (1.0-2.2); BILIRUBIN,TOTAL 0.3 mg/dL (0.2-1.0); CALCIUM 9.6 mg/dL (8.5-10.3); CREATININE 0.5 mg/dL (0.4-1.0); POTASSIUM 3.3 mmol/L (3.5-5.0); TOTAL PROTEIN 8.3 g/dL (6.7-8.2)
[2021-05-03 15:08] LABS: BILIRUBIN,URINE NEGATIVE (NEGATIVE); GLUCOSE, URINE (UA) NEGATIVE (NEGATIVE); KETONES,URINE (UA) NEGATIVE (NEGATIVE); LEUKOCYTE ESTERASE, URINE TRACE (NEGATIVE); NITRITE,URINE POSITIVE (NEGATIVE); OCCULT BLOOD,URINE LARGE (NEGATIVE); PROTEIN,URINE 100 mg/dL (NEGATIVE); UROBILINOGEN,URINE 1 (NORMAL) E.U./dL (NORMAL)
[2021-05-03] MEDS ORDERED: TRANEXAMIC ACID 1,000 MG in SODIUM CHLORIDE 0.9% 100ML 100 ML IV STA (15:08)
[2021-05-03 15:14] LABS: CLARITY,URINE BLOODY (CLEAR)
[2021-05-03 15:20] LABS: BACTERIA,URINE Rare /HPF (None Seen); RBC,URINE TNTC /HPF (0-5); SQUAMOUS EPITHELIAL CELL,UR RARE Squamous (<= Few)
[2021-05-03 16:25] VITALS: BP 133/79
--- NOTE | 2021-05-05 14:56 | ED Physician Documentation ---
ED Addendum - Addendum Addendum: 05/05/21 14:55 Urine cx + betahemolytic strep group B. Rx for vantin sent electronically to the [facility] in [place]; directed nursing staff to notify patient
== END 2021-05-03 17:43 | disposition home or self-care (01) ==
LOC: ED 14:03
DX: N93.9 Abnormal uterine and vaginal bleeding, unspecified (principal)
CPT/HCPCS: 36415; 80053; 81001; 81003; 83690; 85025; 86850; 86900; 86901; 87086; 96365; 99283